=== PATIENT | female | born 1990 | race Caucasian/White ===

== ENCOUNTER 2019-05-24 21:05 | Inpatient (IN) ==
[2019-05-24] MEDS ORDERED: OXYTOCIN 30 UNITS/500 ML BAG IV PRN (21:37)
--- NOTE | 2019-05-24 21:48 | History & Physical Report ---
Date of Service May 24, 2019 Assessment & Plan (1) Uterine contractions at greater than 20 weeks of gestation: 28 yo at 39.4 wks with ctxs and cervical change fro office visit today VSS Afebrile FHR reassuring GBS negative h/o HSV, on Valtrex, no lesions Desires unmedicated labor and ambulate Plan to admit monitor expectant management History of Present Illness Primary Care Provider: NO PCP Patient is a 28 yo at 39.3 wks who has been feeling ctxs since 3 pm, getting more closer and regular Pain is 10/07 No LOF/VB +FM's Her has been uncomplicated except 1) h/o genital HSV, on Valtrex 500 mg daily, denies any recent history of but per records she had outbreak in February Denies any symptoms Denies medical problems Depression/ anxiety in her records but declined She has plan and likes to walk as much as she can and plans no pain meds nor epidural Allergies Allergy/AdvReac Type Severity Reaction Status Date / Time loracarbef [From Lorabid] AdvReac Hives Verified 05/06/19 20:33 Home Medications Home Medications Medication Instructions Recorded Confirmed Type vit no.[id number] 1 tab PO DAILY 05/06/19 05/06/19 History [ Vitamin] valacyclovir [Valtrex] 500 mg PO BID 05/06/19 05/06/19 History Patient History Medical History Abnormal Pap smear of cervix 2018 Herpes genitalia Last outbreak 02/2019; on Valtrex No significant past medical history (Inactive) Vaginal bleeding (Inactive) Surgical History History of colposcopy 2018 Social History Preferred Language: Welsh Communication Ability: Effective 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 Beliefs That Will Affect Care: None marital status: Current Living Situation: Spouse and Family Current Living Situation Comment: Has a step Kaidance Feels Safe at Home: Yes Safety Concerns: Feels Safe At This Time Smoking Status: Never smoker Second Hand Exposure: No ; Hx Alcohol Use: No Hx Substance Use: No Review of Systems All systems reviewed & are unremarkable except as noted in HPI & below Physical Exam Constitutional: WD/WN, vitals as above well developed and well nourished Comfortable, NAD Genitourinary: normal external appearance Speculum/Bimanual Exam: normal appearance of the vagina Manual OB Exam: + cervical dilation (4-5 CM), + cervical effacement 80% and + station -2 (tight bulging bag) Results & Data Vital Signs (Past 12 Hours) Vital Signs Pulse BP 05/24/19 21:36 71 140/88 Monitoring External Monitor 140's categ I Tocodynamometer Ctxs q 2-4 min
[2019-05-24] MEDS ORDERED: BUTORPHANOL TARTRATE 1 MG/ML VIAL IV PRN (21:58)
[2019-05-24 22:00] LABS: Hematocrit (blood only) 38.6 % (37-47); Mean Corpuscular Hemoglobin 30.4 pg (25-34); Mean Corpuscular Volume 90.2 fL (80-100); Mean Platelet Volume 11.3 fL (7.4-10.4); Platelet Count 221 K/uL (130-400); RDW Coefficient of Variation 13.9 % (11.5-14.5); Red Blood Count 4.28 M/uL (4.2-5.4); White Blood Count 13.51 K/uL (4.8-10.8)
[2019-05-24] MEDS ORDERED: VALACYCLOVIR HCL 500 MG TABLET PO ONE (22:03)
[2019-05-24 22:08] LABS: Mean Corpuscular Hgb Conc 33.7 g/dL (32-36)
--- NOTE | 2019-05-24 22:08 | Obstetrical Progress Note ---
Date of Service May 24, 2019 Assessment & Plan Admission and Anticipated Discharge Date Admission Date: May 24, 2019 Subjective Addendum: Spekulum exam was done, no lesions on vulva/ vagina nor cervix White curdy d/c noted suggesting lydia Patient denies any outbreaks of HSV denies any symptoms of it. Results & Data ([facility]) Vital Signs (Past 12 Hours) Vital Signs Pulse BP 05/24/19 21:36 71 140/88
[2019-05-24] MEDS ORDERED: FLUCONAZOLE 50 MG TAB PO ONE (22:09)
[2019-05-24 22:24] LABS: Albumin Level 2.6 gm/dl (3.4-5.0); BUN Creatinine Ratio 23.7 (10-20); Calcium 9.5 mg/dl (8.5-10.1); Creatinine Clr Calc Pharmacy 140.4 ml/min; Est GFR (African American) 127.5; Potassium 3.8 mmol/L (3.5-5.1)
[2019-05-24 22:35] LABS: Albumin Globulin Ratio 0.6 (0.9-2); Bilirubin,Total 0.2 mg/dl (0.2-1); Globulin 4.3 gm/dl (2.5-4.0); Total Protein 6.9 gm/dl (6.4-8.2)
[2019-05-24] MEDS: PRENATAL VITAMIN 1 TAB PO SCH (23:52)
--- NOTE | 2019-05-25 06:58 | Obstetrical Progress Note ---
Date of Service May 25, 2019 Assessment & Plan Admission and Anticipated Discharge Date Admission Date: May 24, 2019 Subjective Patient is reevaluated She was sleeping States contractions spaced out and got less painful that she could sleep No LOF/VB +FM VE; good 5 cm/ 90%/ -2, bulging tight bag, minimal change FHR reassuring [place]: irregular ctxs Discussed augmentation with Oxytocin and AROM, she agreed All questions were answered Continue to monitor Results & Data ([facility]) Vital Signs (Past 12 Hours) Vital Signs Temp Pulse Resp BP 05/25/19 04:12 36.9 C 80 18 123/79 05/24/19 23:34 37.1 C 75 18 137/85 05/24/19 21:36 71 140/88
[2019-05-25] MEDS ORDERED: OXYTOCIN 30 UNITS/500 ML BAG IV PRN ×2 (07:00→16:37)
[2019-05-25] MEDS: PRENATAL VITAMIN 1 TAB PO SCH (08:23)
--- NOTE | 2019-05-25 08:27 | Obstetrical Progress Note ---
Date of Service May 25, 2019 Assessment & Plan Admission and Anticipated Discharge Date Admission Date: May 24, 2019 Physical Exam Genitourinary: Manual OB Exam: + cervical dilation 4 cm and 5 cm, + cervical effacement 90% and + station -2 OB Exam Monitor Tracing: + external FHT monitor used, + external uterine monitor used, + category I and + normal FHT variability will start Oxytocin to augment contractions Results & Data ([facility]) Vital Signs (Past 12 Hours) Vital Signs Temp Pulse Resp BP 05/25/19 07:08 36.6 C 64 20 127/83 05/25/19 04:12 36.9 C 80 18 123/79 05/24/19 23:34 37.1 C 75 18 137/85 05/24/19 21:36 71 140/88
[2019-05-25] MEDS: LACTATED RINGER'S 1,000 ML IV PRN ×2 (08:30→13:02)
--- NOTE | 2019-05-25 11:32 | Obstetrical Progress Note ---
Date of Service May 25, 2019 Assessment & Plan Admission and Anticipated Discharge Date Admission Date: May 24, 2019 Physical Exam Genitourinary: Manual OB Exam: + cervical dilation 5 cm, + cervical effacement 90%, + station -2 and + amniotic fluid clear OB Exam Monitor Tracing: + external FHT monitor used, + external uterine monitor used, + category I and + normal FHT variability AROM with Amni-hook with clear fluid Results & Data ([facility]) Vital Signs (Past 12 Hours) Vital Signs Temp Pulse Resp BP 05/25/19 10:37 71 124/81 05/25/19 10:36 72 128/82 05/25/19 09:31 75 20 124/80 05/25/19 07:08 36.6 C 64 20 127/83 05/25/19 04:12 36.9 C 80 18 123/79 05/24/19 23:34 37.1 C 75 18 137/85
[2019-05-25] MEDS ORDERED: ePHEDrine sulfate 50 MG/ML AMP ONE (12:47)
[2019-05-25] MEDS ORDERED: fentaNYL citrate 100 MCG/2 ML VIAL ONE (12:47)
[2019-05-25] MEDS ORDERED: fentaNYL 2MCG/ML ROPIV 1.25MG/ML 100 ML BAG EPI ONE (12:48)
[2019-05-25] MEDS ORDERED: BUPIVACAINE 0.25% 30 ML VIAL ONE (12:48)
--- NOTE | 2019-05-25 13:05 | Anesthesiology Consultation ---
Date of Service May 25, 2019 Assessment & Plan (1) Encounter for pre-operative examination: Chart Review Chart Review: Acceptable Risk for Labor Epidural History Height/Weight Height: 5 ft 6 in Weight: 106.594 kg Allergies Allergy/AdvReac Type Severity Reaction Status Date / Time loracarbef [From Lorabid] AdvReac Hives Verified 05/06/19 20:33 Medications Home Medications Medication Instructions Recorded Confirmed Last Taken vit no.[id number] 1 tab PO DAILY 05/06/19 05/24/19 05/23/19 [ Vitamin] valacyclovir [Valtrex] 500 mg PO BID 05/06/19 05/24/19 05/23/19 Active Medications Generic Name Dose Route Start Last Admin Trade Name Freq PRN Reason Stop Dose Admin Lactated Ringer's 1,000 mls @ 150 mls/hr 05/24/19 21:37 05/25/19 13:02 Lr IV 05/26/19 21:36 999 mls/hr .[id number] PRN Administration L&D Protocol Protocol Oxytocin 30 units in 500 mls @ 4 mls/hr 05/25/19 07:00 05/25/19 09:08 Pitocin IV 05/27/19 06:59 0.24 units/hr .Q24H PRN 4 mls/hr Labor Induction/Augmentation Titration Protocol 0.24 UNITS/HR Prenat Multivit/Stationary Engineer/Iron/Folic Ac 1 tab 05/24/19 22:05 05/25/19 08:23 Vitamin PO 06/23/19 22:04 Not Given DAILY JONI Past Medical History Medical History Abnormal Pap smear of cervix 2018 Herpes genitalia Last outbreak 02/2019; on Valtrex No significant past medical history (Inactive) Vaginal bleeding (Inactive) Past Surgical History Surgical History History of colposcopy 2018 Social History Smoking Status: Never smoker Hx Alcohol Use: No Hx Substance Use: No substance use type: does not use Physical Exam Vital Signs Last Vital Signs Temp 37.3 C 05/25/19 11:35 Pulse 64 05/25/19 13:03 Resp 16 05/25/19 11:35 BP 158/81 H 05/25/19 12:40 Pulse Ox 98 02/25/20 13:03 Testing Laboratory Results 05/24/19 21:52 05/24/19 21:52
[2019-05-25] MEDS ORDERED: NALOXONE HCL 0.4 MG/1 ML VIAL/CARP IV PRN (13:32)
[2019-05-25] MEDS ORDERED: ONDANSETRON INJ 2 MG/ML 2 ML VIAL IV PRN (13:32)
[2019-05-25] MEDS ORDERED: ePHEDrine sulfate 50 MG/ML AMP IV PRN (13:32)
[2019-05-25] MEDS ORDERED: NALOXONE HCL 1 MG in SODIUM CHLORIDE 0.9% 1000ML 1,000 ML IV PRN (13:32)
[2019-05-25] MEDS ORDERED: fentaNYL 2MCG/ML ROPIV 1.25MG/ML 100 ML BAG EPI PRN (13:32)
[2019-05-25] MEDS ORDERED: SUPERCREAM 0.870% 15 GM JAR EXT PRN (16:37)
[2019-05-25] MEDS ORDERED: BENZOCAINE 20% AER SPR 82.5 GM CAN EXT PRN (16:37)
[2019-05-25] MEDS ORDERED: DIPHTHERIA/TETANUS/PERTUSSIS 0.5 ML SYR/VIAL IM ONE (16:37)
[2019-05-25] MEDS ORDERED: bisacodyL 10 MG SUPP PR PRN (16:37)
[2019-05-25] MEDS ORDERED: ACETAMINOPHEN 325 MG TAB PO PRN (16:37)
[2019-05-25] MEDS ORDERED: HYDROCORTISONE ACETATE 25 MG SUPP PR PRN (16:37)
--- NOTE | 2019-05-25 16:39 | Delivery Summary ---
Vaginal Delivery Summary Date of Service May 25, 2019 Vaginal Delivery Summary Delivery note live male BYRON over intact perineum with delayed cord clamping. Apgars 8/9 weight pending. Cord blood obtained followed by spontaneous delivery of intact placenta. First degree tear repaired with 3/0 Vicryl suture. Final sponge needle and instrument count are correct. EBL 200 ml. Mom and baby stable.
--- NOTE | 2019-05-25 17:54 | Anesthesiology Progress Note ---
Date of Service May 25, 2019 Anesthesia Post Procedure Vital Signs Vital Signs: Temp Pulse Resp BP Pulse Ox 05/25/19 17:33 74 149/67 H 05/25/19 17:16 67 142/77 H 05/25/19 17:01 76 138/82 05/25/19 16:48 74 128/88 05/25/19 16:31 153/87 H 05/25/19 16:28 82 100 05/25/19 16:23 83 99 05/25/19 16:18 73 100 05/25/19 16:17 67 154/82 H 05/25/19 16:13 140 H 100 05/25/19 16:08 79 100 05/25/19 16:03 96 H 97 05/25/19 16:01 75 136/65 05/25/19 15:58 89 99 05/25/19 15:53 67 100 05/25/19 15:48 69 95 05/25/19 15:47 36.7 C 64 16 135/86 05/25/19 15:43 71 97 05/25/19 15:38 65 99 05/25/19 15:33 65 100 05/25/19 15:32 62 133/72 05/25/19 15:28 63 99 05/25/19 15:23 72 100 05/25/19 15:18 66 100 05/25/19 15:17 61 125/71 05/25/19 15:13 64 100 05/25/19 15:08 61 100 05/25/19 15:03 73 84/50 L 100 05/25/19 14:58 63 100 05/25/19 14:53 66 100 05/25/19 14:48 64 100 05/25/19 14:47 63 102/58 L 05/25/19 14:43 69 99 05/25/19 14:39 78 93 05/25/19 14:38 85 96 05/25/19 14:33 62 99 05/25/19 14:32 36.3 C L 61 16 133/78 05/25/19 14:28 59 L 99 05/25/19 14:23 60 99 05/25/19 14:18 62 99 05/25/19 14:13 60 100 05/25/19 14:12 61 165/85 H 05/25/19 14:08 60 99 05/25/19 14:07 60 167/86 H 05/25/19 14:03 60 98 05/25/19 14:01 62 151/90 H 05/25/19 13:58 63 99 05/25/19 13:56 64 146/84 H 05/25/19 13:53 62 99 05/25/19 13:52 63 138/77 05/25/19 13:48 80 135/73 99 05/25/19 13:43 65 98 05/25/19 13:41 67 137/75 05/25/19 13:38 68 98 05/25/19 13:37 67 121/68 05/25/19 13:36 36.1 C L 18 05/25/19 13:35 65 122/64 05/25/19 13:33 66 126/63 98 05/25/19 13:31 61 126/59 L 05/25/19 13:29 63 122/57 L 05/25/19 13:28 61 98 05/25/19 13:27 62 124/57 L 05/25/19 13:23 73 98 05/25/19 13:18 80 99 05/25/19 13:14 94 H 94 05/25/19 13:13 91 H 100 05/25/19 13:08 62 100 05/25/19 13:07 68 90 05/25/19 13:03 64 98 05/25/19 12:40 75 158/81 H 05/25/19 12:39 80 161/95 H 05/25/19 11:35 37.3 C 69 16 136/85 05/25/19 10:37 71 20 124/81 05/25/19 10:36 72 128/82 05/25/19 09:31 75 20 124/80 05/25/19 07:08 36.6 C 64 20 127/83 05/25/19 04:12 36.9 C 80 18 123/79 05/24/19 23:34 37.1 C 75 18 137/85 05/24/19 21:36 71 140/88 Notes Mental Status: alert / awake / arousable and participated in evaluation Nausea / Vomiting: adequately controlled Pain: adequately controlled Airway Patency, RR, SpO2: stable & adequate BP & HR: stable & adequate Hydration State: stable & adequate Neuraxial Anesthesia: was administered and sensory block is resolving Anesthetic Complications: no major complications apparent
[2019-05-25] MEDS: DOCUSATE SODIUM 100 MG CAP PO SCH (20:33)
[2019-05-25] MEDS: IBUPROFEN 600 MG TAB PO PRN (20:33)
[2019-05-26] MEDS: IBUPROFEN 600 MG TAB PO PRN ×4 (03:12→18:09)
[2019-05-26 07:28] LABS: Hematocrit (blood only) 33.5 % (37-47); Hemoglobin 11.3 g/dL (12.0-16.0); Mean Corpuscular Hemoglobin 30.3 pg (25-34); Mean Corpuscular Hgb Conc 33.7 g/dL (32-36); Mean Corpuscular Volume 89.8 fL (80-100); Mean Platelet Volume 11.1 fL (7.4-10.4); Platelet Count 176 K/uL (130-400); RDW Coefficient of Variation 14.1 % (11.5-14.5); Red Blood Count 3.73 M/uL (4.2-5.4); White Blood Count 11.74 K/uL (4.8-10.8)
[2019-05-26] MEDS: FERROUS SULFATE 325 MG TAB PO SCH (07:48)
[2019-05-26] MEDS: DOCUSATE SODIUM 100 MG CAP PO SCH ×2 (07:48→20:49)
[2019-05-26] MEDS ORDERED: PRENATAL VITAMIN 1 TAB PO SCH ×2 (08:00→09:00)
--- NOTE | 2019-05-26 08:45 | Obstetrical Progress Note ---
Date of Service May 26, 2019 Assessment & Plan Admission and Anticipated Discharge Date Admission Date: May 24, 2019 Physical Exam Physical Exam: abdomen soft and non tender no calf tenderness ambulating well vaginal bleeding scant hgb 11.3 Results & Data ([facility]) Vital Signs (Past 12 Hours) Vital Signs Temp Pulse Resp BP Pulse Ox 05/26/19 03:10 36.6 C 81 16 128/79 98 05/25/19 23:35 37.2 C 95 H 16 123/84 97
--- NOTE | 2019-05-26 08:54 | Obstetrical Progress Note ---
Date of Service May 26, 2019 Assessment & Plan Admission and Anticipated Discharge Date Admission Date: May 24, 2019 Physical Exam Physical Exam: abdomen soft and non tender no calf tenderness ambulating well vaginal bleeding scant hgb 11.3 Results & Data ([facility]) Vital Signs (Past 12 Hours) Vital Signs Temp Pulse Resp BP Pulse Ox 05/26/19 03:10 36.6 C 81 16 128/79 98 05/25/19 23:35 37.2 C 95 H 16 123/84 97
[2019-05-26] MEDS ORDERED: bisacodyL 5 MG TABEC PO SCH (20:00)
[2019-05-27] MEDS: IBUPROFEN 600 MG TAB PO PRN ×2 (00:27→09:03)
[2019-05-27 06:53] LABS: Hematocrit (blood only) 32.6 % (37-47); Hemoglobin 10.9 g/dL (12.0-16.0)
[2019-05-27] MEDS: PRENATAL VITAMIN 1 TAB PO SCH (09:10)
[2019-05-27] MEDS: DOCUSATE SODIUM 100 MG CAP PO SCH (09:10)
[2019-05-27] MEDS: FERROUS SULFATE 325 MG TAB PO SCH (09:10)
--- NOTE | 2019-05-27 09:10 | Obstetrical Progress Note ---
Date of Service May 27, 2019 Assessment & Plan Admission and Anticipated Discharge Date Admission Date: May 24, 2019 Subjective Patient is seen and examined. She feels well, no complaints. Ambulating without dizziness Voiding without difficulty Tolerating regular diet with out N&V Bleeding is minimal No fever/ chills/ CP/ SOB/ N&V/ Leg pain Breast and bottle feeding without problems Vital Signs Temp Pulse Resp BP Pulse Ox 05/26/19 23:25 36.9 C 84 18 125/80 97 05/26/19 19:25 37.4 C 82 20 143/82 H 98 05/26/19 16:30 37.0 C 71 16 129/76 05/26/19 12:24 36.7 C 80 16 132/85 Lab Results 05/24/19 05/24/19 05/26/19 Range/Units 21:52 21:52 07:14 WBC 13.51 H 11.74 H (4.8-10.8) K/uL RBC 4.28 3.73 L (4.2-5.4) M/uL Hgb 13.0 11.3 L (12.0-16.0) g/dL Hct 38.6 33.5 L (37-47) % MCV 90.2 89.8 (80-100) fL MCH 30.4 30.3 (25-34) pg MCHC 33.7 33.7 (32-36) g/dL RDW Std Deviation 45.0 46.0 (36.4-46.3) fL RDW Coeff of Jeff 13.9 14.1 (11.5-14.5) % Plt Count 221 176 (130-400) K/uL MPV 11.3 H 11.1 H (7.4-10.4) fL Sodium 137 (136-145) mmol/L Potassium 3.8 (3.5-5.1) mmol/L Chloride 106 (98-107) mmol/L Carbon Dioxide 23 (21-32) mmol/L Anion Gap 8.0 (3-11) BUN 18 (7-18) mg/dl Creatinine 0.75 (0.6-1.2) mg/dl Est Cr Clr Drug Dosing 140.4 ml/min Est GFR ( Amer) 127.5 Est GFR (Non-Af Amer) 110.0 BUN/Creatinine Ratio 23.7 H (10-20) Glucose 94 (70-99) mg/dl Calcium 9.5 (8.5-10.1) mg/dl Total Bilirubin 0.2 (0.2-1) mg/dl AST 20 (15-37) U/L ALT 32 (12-78) U/L Alkaline Phosphatase 122 H (45-117) U/L Total Protein 6.9 (6.4-8.2) gm/dl Albumin 2.6 L (3.4-5.0) gm/dl Globulin 4.3 H (2.5-4.0) gm/dl Albumin/Globulin Ratio 0.6 L (0.9-2) 05/27/19 Range/Units 06:36 WBC (4.8-10.8) K/uL RBC (4.2-5.4) M/uL Hgb 10.9 L (12.0-16.0) g/dL Hct 32.6 L (37-47) % MCV (80-100) fL MCH (25-34) pg MCHC (32-36) g/dL RDW Std Deviation (36.4-46.3) fL RDW Coeff of Jeff (11.5-14.5) % Plt Count (130-400) K/uL MPV (7.4-10.4) fL Sodium (136-145) mmol/L Potassium (3.5-5.1) mmol/L Chloride (98-107) mmol/L Carbon Dioxide (21-32) mmol/L Anion Gap (3-11) BUN (7-18) mg/dl Creatinine (0.6-1.2) mg/dl Est Cr Clr Drug Dosing ml/min Est GFR ( Amer) Est GFR (Non-Af Amer) BUN/Creatinine Ratio (10-20) Glucose (70-99) mg/dl Calcium (8.5-10.1) mg/dl Total Bilirubin (0.2-1) mg/dl AST (15-37) U/L ALT (12-78) U/L Alkaline Phosphatase (45-117) U/L Total Protein (6.4-8.2) gm/dl Albumin (3.4-5.0) gm/dl Globulin (2.5-4.0) gm/dl Albumin/Globulin Ratio (0.9-2) PE: General: Alert, orientedx3, NAD Abd: soft, NT, fundus firm, below Umbilicus Perineum intact, Lochia rubra minimal Ext; NT, Homans sign negative BL, trace edema AP: 28 yo s/p , ppd# 2 VSS Afebrile doing well Continue routine care All questions were answered Disussed when to call D/C home , f/u in office Results & Data ([facility]) Vital Signs (Past 12 Hours) Vital Signs Temp Pulse Resp BP Pulse Ox 05/26/19 23:25 36.9 C 84 18 125/80 97
== END 2019-05-27 13:45 | disposition home or self-care (01) | DRG 806 ==
LOC: OPB 21:05 → 4S1 21:08 → 4S2 05-25 19:06

== ENCOUNTER 2021-09-14 20:03 | Inpatient (IN) ==
[2021-09-14] MEDS ORDERED: LACTATED RINGER'S 1,000 ML IV PRN (20:34)
[2021-09-14] MEDS ORDERED: OXYTOCIN 30 UNITS/500 ML BAG IV PRN (20:34)
[2021-09-14] MEDS ORDERED: PENICILLIN G POTASSIUM 6 MU in DEXTROSE 5% 250 ML IV STA (20:44)
[2021-09-14 21:21] LABS: Hematocrit (blood only) 37.4 % (37-47); Hemoglobin 12.2 g/dL (12.0-16.0); Mean Corpuscular Hemoglobin 28.1 pg (25-34); Mean Corpuscular Hgb Conc 32.6 g/dL (32-36); Mean Corpuscular Volume 86.2 fL (80-100); Mean Platelet Volume 11.2 fL (7.4-10.4); Platelet Count 226 K/uL (130-400); RDW Coefficient of Variation 14.6 % (11.5-14.5); RDW Standard Deviation 45.3 fL (36.4-46.3); Red Blood Count 4.34 M/uL (4.2-5.4); White Blood Count 8.99 K/uL (4.8-10.8)
--- NOTE | 2021-09-14 21:26 | History & Physical Report ---
Date of Service September 14, 2021 Assessment & Plan (1) Active labor at term: Plan: 31-year-old -0-0-1 at 39 weeks and 1 day of gestation who was originally scheduled for primary on September 19 for suspected macrosomia, 3 consecutive ultrasounds confirming growth more than 90th percentile. Patient is presenting in active labor with cervical change since this morning, Vital signs stable afebrile, heart rate reassuring, GBS positive, Patient declines and desires to try vaginal . We discussed the risk of macrosomia and shoulder dystocia in details. See HPI. She understands all and desires to try vaginal . She came with 2 Doulas and desires no pain meds and no epidural. I Recommended her to get epidural just in case we would encounter shoulder dystocia, it will be easier for her and delivery of the infant with epidural in place. She understands all and she will think about it. All questions were answered. Plan to admit, monitor, labs, penicillin for GBS and AROM after 4 hours. (2) Macrosomia: (3) HSV-2 infection complicating : (4) GBS (group B Streptococcus carrier), +RV culture, currently : Admission and Anticipated Discharge Date Admission Date: September 14, 2021 History of Present Illness Chief Complaint: Contractions Primary Care Provider: Jose Han DO Patient is a 31-year-old -0-0-1 at 39 weeks and 1 day gestation who has been feeling contractions since 4 PM this afternoon. They got more color and painful the last 2 hours. She denies leakage of fluid or vaginal bleeding. She reports good movements. She was originally scheduled for primary on September 19 for suspected macrosomia. She has been measuring large and estimated weights over 90th percentile per 2 ultrasounds in early third trimester 1 of which was done by [facility] and another ultrasound 2 days ago at the office. She had ultrasound at 32 weeks and was measuring at 96th percentile. She was referred to [facility] and had ultrasound on August 08 when she was 33 weeks and 6 days at that time baby was measuring 37 weeks and estimated weight over 99th percentile. Last US with Estimated weight of 4026 gr +/- 603 gr on 09/12. She signed an informed consent for primary at the office when she was counseled by Dr. Martinez. scheduled for September 19. She is questioning whether she should labor and deliver vaginally since she is in labor now. Her cervix is 6 cm dilated, 80% effaced head is at -1 station well applied to the cervix. I performed a bedside ultrasound and measured the baby 4350 g 680 g. We discussed the risks of shoulder dystocia increases with larger babies. The risks include but not limited to number injury paralysis of upper arm, asphyxia, hypoxia during delivery, fractures and even . She understands that we are not able to predict shoulder surgery until delivery of the head which might be too late to go back to . We discussed all possible scenarios including even normal size 8 or 9 pounds babies can have shoulder dystocia as well as 10 pound baby sometimes can be delivered normally without difficulty. All questions were answered. Her has been complicated by, 1. obesity, 2. GBS positive, 3. History of genital herpes, it was over 2 years ago, no symptoms now, she has been on Valtrex since 36 weeks. Allergies Allergy/AdvReac Type Severity Reaction Status Date / Time loracarbef [From Lorabid] AdvReac Hives Verified 09/14/21 20:10 Home Medications Medication Instructions Recorded Confirmed Type prenat.vits,gabe,ufb-sthp-[id number] 1 tab PO DAILY 08/16/21 09/14/21 History valacyclovir 500 mg tablet 500 mg PO BID 09/14/21 09/14/21 History (Valtrex) Patient History Medical History Abnormal Pap smear of cervix 2018 Acid reflux with Anemia resolving Herpes genitalia Last outbreak 02/2019; on Valtrex History of COVID-18 Mar 2021 > not hospitalized > mild symptoms Surgical History H/O wisdom tooth extraction (~08/09/08) History of colposcopy 2017 Family History Mother Pulmonary embolism Hypertension Grandfather (Paternal) Diabetes Sister Thyroid disease Grandmother (Maternal) Thyroid disease Denies family history of Ovarian cancer Prostate cancer Breast cancer Colorectal cancer Social History Smoking Status: Never smoker Second Hand Exposure: No; Hx Alcohol Use: No Hx Substance Use: No Preferred Language: Malawian Communication Ability: Effective Visual Impairment: Partially Limited Hearing Ability: Normal Assistant Clinical Director Required: No Beliefs That Will Affect Care: None marital status: marital status details: Darius Adam (46) [phone] Current Living Situation: Spouse and Family Current Living Situation Comment: 2.5 year old son and current occupational status: unemployed current occupation: homemaker Other Information That Helps Us Care for You: No Feels Safe at Home: Yes Safety Concerns: Feels Safe At This Time Gender Identity: Female Assistive Devices: Glasses OB History FT in 2019, 7 lb 6oz, no dystocia Review of Systems as per Subjective / HPI Physical Exam Constitutional: well developed, well nourished and + obese She seems comfortable with contractions not in acute distress Gastrointestinal (Abdomen): normal bowel sounds, soft, nontender, no hepatosplenomegaly (Gravid, EFW 9-10 pounds) Genitourinary: normal external appearance OB Exam Abdomen: + vertex Manual OB Exam: + cervical dilation 6 cm, + cervical effacement 80% and + station -1 OB Exam Monitor Tracing: + external FHT monitor used, + external uterine monitor used and + category I Results & Data ([facility]) Vital Signs (Past 12 Hours) Vital Signs Temp Pulse Resp BP 09/14/21 20:11 37.1 C 82 18 120/75 09/14/21 20:07 82 120/75 Laboratory Results Lab Results 09/14/21 09/14/21 Range/Units 20:40 20:52 WBC 8.99 (4.8-10.8) K/uL RBC 4.34 (4.2-5.4) M/uL Hgb 12.2 (12.0-16.0) g/dL Hct 37.4 (37-47) % MCV 86.2 (80-100) fL MCH 28.1 (25-34) pg MCHC 32.6 (32-36) g/dL RDW Std Deviation 45.3 (36.4-46.3) fL RDW Coeff of Jeff 14.6 H (11.5-14.5) % Plt Count 226 (130-400) K/uL MPV 11.2 H (7.4-10.4) fL SARS-CoV-2, RNA, NAAT NEGATIVE (NEGATIVE)
[2021-09-14] MEDS ORDERED: ePHEDrine sulfate 50 MG/ML AMP ONE (22:12)
[2021-09-14] MEDS ORDERED: fentaNYL citrate 100 MCG/2 ML VIAL ONE (22:12)
[2021-09-14] MEDS ORDERED: BUPIVACAINE 0.25% 30 ML VIAL ONE (22:12)
[2021-09-14] MEDS ORDERED: fentaNYL 2MCG/ML ROPIVACAINE 1.25MG/ML 100 ML BAG EPI ONE (22:12)
[2021-09-14] MEDS ORDERED: SODIUM CHLORIDE 0.9% INJ 10 ML VIAL ONE (22:12)
--- NOTE | 2021-09-14 23:07 | Anesthesiology Consultation ---
Date of Service September 14, 2021 Assessment & Plan Chart Review Chart Review: Acceptable Risk for Labor Epidural Consults Requested none History Height/Weight Height: 5 ft 6 in Weight: 117.934 kg Allergies Allergy/AdvReac Type Severity Reaction Status Date / Time loracarbef [From Lorabid] AdvReac Hives Verified 09/14/21 20:10 Medications Home Medications Medication Instructions Recorded Confirmed Last Taken prenat.vits,gabe,[id number] 1 tab PO DAILY 08/16/21 09/14/21 09/14/21 09:00 valacyclovir 500 mg tablet 500 mg PO BID 09/14/21 09/14/21 09/14/21 09:00 (Valtrex) Active Medications Generic Name Dose Route Start Last Admin Trade Name Freq PRN Reason Stop Dose Admin Lactated Ringer's 1,000 mls @ 125 mls/hr 09/14/21 20:34 09/14/21 22:45 Lr IV 09/16/21 20:33 125 mls/hr .Q8H PRN Infusion L&D Protocol Protocol Past Medical History Medical History Abnormal Pap smear of cervix 2018 Acid reflux with Anemia resolving Herpes genitalia Last outbreak 02/2019; on Valtrex History of COVID-18 Mar 2021 > not hospitalized > mild symptoms Past Family History Family History Mother Pulmonary embolism Hypertension Grandfather (Paternal) Diabetes Sister Thyroid disease Grandmother (Maternal) Thyroid disease Denies family history of Ovarian cancer Prostate cancer Breast cancer Colorectal cancer Past Surgical History Surgical History H/O wisdom tooth extraction (~08/09/08) History of colposcopy 2018 Social History Smoking Status: Never smoker Hx Alcohol Use: No Hx Substance Use: No substance use type: does not use Physical Exam Vital Signs Last Vital Signs Temp 37.1 C 09/14/21 20:11 Pulse 83 09/14/21 23:04 Resp 18 09/14/21 20:11 BP 120/75 09/14/21 20:11 Pulse Ox 96 06/17/22 23:04 Testing Laboratory Results 09/14/21 20:52 Blood Type A Positive 09/14/21 20:52 Blood Type Cancelled 09/14/21 20:52 Antibody Screen Cancelled 09/14/21 20:52 Antibody Screen NEGATIVE 09/14/21 20:52
--- NOTE | 2021-09-14 23:14 | Communication Note ---
Date of Service: September 14, 2021 Pt requested and consented for labor epidural/CSE. In sitting position, lumbar skin prepped and draped. Local 1% lidocaine to skin. 17g Touhy placed at L3 - 4. After several attempts, I was unable to locate epidural space. Pt c/o pain and requested discontinuation of procedure. Procedure aborted, pt returned to supine position.
[2021-09-14] MEDS ORDERED: PENICILLIN G POTASSIUM 3 MU in DEXTROSE 5% 100 ML IV PRN (23:34)
--- NOTE | 2021-09-15 00:43 | Obstetrical Progress Note ---
Date of Service September 15, 2021 Assessment & Plan Admission and Anticipated Discharge Date Admission Date: September 14, 2021 Subjective Patient has been walking and taking showers. She asked for epidural but anesthesia was not able to place. Her pain is tolerable, taking shower helps. VE; 6-7 cm/ 70%/ -1, central, bulging bag, discussed AROM vs spontaneous labor and SROM and she agreed AROM, AROM'ed, abundant clear fluid was obtained. FHR categ I [place]: ctxs spread out, q 5-7 min Continue to monitor closely Anticipate Results & Data ([facility]) Vital Signs (Past 12 Hours) Vital Signs Temp Pulse Resp BP Pulse Ox 09/14/21 23:10 37.1 C 20 09/14/21 23:08 78 125/70 09/14/21 23:04 83 96 09/14/21 22:59 85 96 09/14/21 22:58 88 90 09/14/21 22:54 86 97 09/14/21 22:49 82 99 09/14/21 22:44 77 99 09/14/21 22:39 73 99 09/14/21 22:34 74 98 09/14/21 22:29 83 96 09/14/21 22:24 76 99 09/14/21 22:19 83 99 09/14/21 20:11 37.1 C 82 18 120/75 09/14/21 20:07 37.1 C 82 18 120/75
[2021-09-15] MEDS ORDERED: BUTORPHANOL TARTRATE 1 MG/ML VIAL ONE (02:41)
[2021-09-15] MEDS ORDERED: LIDOCAINE 1% LOCAL 20 ML VIAL ONE ×3 (02:42→03:09)
[2021-09-15] MEDS ORDERED: oxyCODONE/ACETAMINOPHEN 5mg/325mg TAB PO PRN (03:24)
[2021-09-15] MEDS ORDERED: MEASLES, MUMPS & RUBELLA VIRUS VIAL SQ ONE (03:24)
[2021-09-15] MEDS ORDERED: OXYTOCIN 30 UNITS/500 ML BAG IV PRN ×2 (03:24→04:08)
[2021-09-15] MEDS ORDERED: BENZOCAINE 20% AER SPR 82.5 GM CAN EXT PRN (03:24)
[2021-09-15] MEDS ORDERED: DIPHTHERIA/TETANUS/PERTUSSIS 0.5 ML SYR/VIAL IM ONE (03:24)
[2021-09-15] MEDS ORDERED: miSOPROStoL 200 MCG TAB PR ONE (03:24)
[2021-09-15] MEDS ORDERED: HYDROCORTISONE ACETATE 25 MG SUPP PR PRN (03:24)
--- NOTE | 2021-09-15 03:32 | Delivery Summary ---
Vaginal Delivery Summary Date of Service September 15, 2021 Vaginal Delivery Summary The patient was found to be fluid dilated and desire to push. She pushed through 3 contractions and delivered the head without difficulty. He has not had epidural for pain and was acting very uncomfortable and tightening her legs and pelvis muscles. Unable to deliver the shoulders with minimal traction. The nursing team were notified for shoulder dystocia. The bed was all the way down and 2 of the nurses and 2 Doul[place] of patient able to Hyperflex the legs with Brandon maneuver but unable to apply suprapubic pressure. I was able to go into the posterior vagina and deliver the posterior shoulder and arm ( left) difficulty. Then anterior shoulder and the baby's body were delivered with minimal traction and baby was handed off to the mother that her mouth and nose were suctioned, cord was clamped x2 and cut. The time between delivery of the head and the whole body was less than 1 minutes. The baby was handed to the waiting pediatric team. Baby was moving and crying vigorously at that point. Then the vagina and perineum were checked for lacerations. There was a second- degree perineal laceration. Patient's perineum was short and the skin laceration was extended into the perineal area. Full exam was done and noted to have excellent sphincter tone and confirmed to be a Second-Degree laceration. There was a periclitoral 1st degree laceration the labial fusion superiorly. Those were infiltrated with 1% lidocaine for local anesthesia. And patient was given IV Stadol for pain. Was were changed and perineal laceration was repaired with 2-0 Vicryl. Perineal body muscles were held with Allis clamps and brought to midline to support sphincter. [id number] stitches were placed x2. Then the vagina mucosa and skin were reapproximated continuously with another 2-0 Vicryl. Excellent hemostasis achieved. Then the placenta was found to be in the vagina, delivered spontaneously as intact and complete. Uterus was explored and cleared of all clots and debris's, no retained placenta nor membranes were felt. Fundus was firm and IV oxytocin infusion was started. Then the periclitoral laceration was repaired with 3-0 Vicryl on SH needle with [id number] stitch. It was hemostatic. Rest of the vagina and labia were intact. EBL was 250 mL. The mom and baby tolerated procedure well, baby was a viable male infant Apgars 8/9 and weight is pending. No complications happened and I was present during whole procedure. At the end of the procedure the sponge needle instrument count was correct x2.
[2021-09-15] MEDS ORDERED: PENICILLIN G POTASSIUM 6 MU in DEXTROSE 5% 250 ML IV STA (04:08)
[2021-09-15] MEDS ORDERED: LACTATED RINGER'S 1,000 ML IV PRN (04:08)
[2021-09-15] MEDS ORDERED: PENICILLIN G POTASSIUM 3 MU in DEXTROSE 5% 100 ML IV PRN (07:10)
[2021-09-15] MEDS: PRENATAL VITAMIN 1 TAB PO SCH (07:14)
[2021-09-15] MEDS: IBUPROFEN 600 MG TAB PO PRN ×3 (07:15→20:13)
[2021-09-15] MEDS: DOCUSATE SODIUM 100 MG CAP PO SCH ×2 (07:15→19:49)
[2021-09-15] MEDS: FERROUS SULFATE 325 MG TAB PO SCH (07:15)
[2021-09-15] MEDS: ACETAMINOPHEN 325 MG TAB PO PRN (11:04)
[2021-09-16] MEDS: IBUPROFEN 600 MG TAB PO PRN ×3 (01:11→11:22)
[2021-09-16 06:30] LABS: Hematocrit (blood only) 31.8 % (37-47); Hemoglobin 10.3 g/dL (12.0-16.0); Mean Corpuscular Hemoglobin 28.5 pg (25-34); Mean Corpuscular Hgb Conc 32.4 g/dL (32-36); Mean Corpuscular Volume 87.8 fL (80-100); Platelet Count 174 K/uL (130-400); RDW Coefficient of Variation 14.9 % (11.5-14.5); RDW Standard Deviation 47.7 fL (36.4-46.3); Red Blood Count 3.62 M/uL (4.2-5.4); White Blood Count 10.03 K/uL (4.8-10.8)
[2021-09-16] MEDS: DOCUSATE SODIUM 100 MG CAP PO SCH (09:18)
[2021-09-16] MEDS: FERROUS SULFATE 325 MG TAB PO SCH (09:18)
[2021-09-16] MEDS: PRENATAL VITAMIN 1 TAB PO SCH (09:18)
[2021-09-16] MEDS: ACETAMINOPHEN 325 MG TAB PO PRN (09:18)
--- NOTE | 2021-09-16 10:28 | Obstetrical Progress Note ---
Date of Service September 16, 2021 Subjective Review of Systems All systems reviewed & are unremarkable except as noted in HPI & below Physical Exam Constitutional Abdomen soft and non-tender. fundus firm below U. no edema. neg Christo's. for d/c today Results & Data ([facility]) Vital Signs (Past 12 Hours) Vital Signs Temp Pulse Resp BP Pulse Ox 09/15/21 23:23 36.8 C 77 18 120/76 98 Laboratory Results Laboratory Results - last 48 hr 09/14/21 09/14/21 09/14/21 20:40 20:52 20:52 WBC 8.99 RBC 4.34 Hgb 12.2 Hct 37.4 MCV 86.2 MCH 28.1 MCHC 32.6 RDW Std Deviation 45.3 RDW Coeff of Jeff 14.6 H Plt Count 226 MPV 11.2 H SARS-CoV-2, RNA, NAAT NEGATIVE Blood Type A Positive Antibody Screen NEGATIVE 09/14/21 09/16/21 20:52 06:03 WBC 10.03 RBC 3.62 L Hgb 10.3 L Hct 31.8 L MCV 87.8 MCH 28.5 MCHC 32.4 RDW Std Deviation 47.7 H RDW Coeff of Jeff 14.9 H Plt Count 174 MPV 11.0 H SARS-CoV-2, RNA, NAAT Blood Type Cancelled Antibody Screen Cancelled
[2021-09-16] MEDS ORDERED: bisacodyL 5 MG TABEC PO SCH (20:00)
[2021-09-17] MEDS ORDERED: bisacodyL 10 MG SUPP PR PRN
== END 2021-09-16 13:25 | disposition home or self-care (01) | DRG 806 ==
LOC: OPB 20:03 → 4S1 20:06 → 4E2 09-15 06:05